=== PATIENT | male | born 1955 | race Asian ===

== ENCOUNTER → 2023-07-05 08:51 | Outpatient (REF) | payer MEDICARE, SELFPAY | LOC: RAD 08:51 | PROVIDERS: ATTENDING PHYSICIAN Family Medicine | DX: R10.84 Generalized abdominal pain (principal) | CPT/HCPCS: 76700 ==

== ENCOUNTER → 2023-07-20 12:00 | Outpatient (REF) | payer MEDICARE, SELFPAY | LOC: DHSLP 12:00 | PROVIDERS: ATTENDING PHYSICIAN Internal Medicine; FAMILY PHYSICIAN Family Medicine | DX: G47.30 Sleep apnea, unspecified (principal); R06.83 Snoring | CPT/HCPCS: 95800 ==

== ENCOUNTER → 2023-07-27 08:15 | Outpatient (REF) | payer MEDICARE, SELFPAY | LOC: HWRAD 08:15 | PROVIDERS: ATTENDING PHYSICIAN Family Medicine | DX: R10.84 Generalized abdominal pain (principal); R74.8 Abnormal levels of other serum enzymes | CPT/HCPCS: 74177; Q9967 ==

== ENCOUNTER → 2024-01-06 09:15 | Outpatient (REF) | payer MEDICARE, SELFPAY | LOC: DHSLP 09:15 | PROVIDERS: ATTENDING PHYSICIAN Internal Medicine; FAMILY PHYSICIAN Family Medicine | DX: G47.30 Sleep apnea, unspecified (principal); R06.83 Snoring | CPT/HCPCS: 95810 ==

== ENCOUNTER 2024-05-14 16:14 | Emergency (ER) | payer MEDICARE, SELFPAY ==
[2024-05-14 16:15] VITALS: BP 170/83
[2024-05-14 16:50] LABS: % Basophils 0.4 % (0-2); % Eosinophils 2.7 % (0-6); % Immature Granulocytes 0.3 % (0-0.5); % Lymphocytes 45.8 % (20.5-51.1); % Monocytes 6.1 % (1.7-9.3); % Neutrophils 44.7 % (42.2-75.2); Absolute Eosinophils 0.2 10^3/uL (0-0.7); Absolute Lymphocytes 3.6 10^3/uL (1.2-3.4); Absolute Monocytes 0.5 10^3/uL (0.1-0.6); Absolute Neutrophils 3.5 10^3/uL (1.4-6.5); Hematocrit 36.2 % (39.0-52.0); Hemoglobin 13.1 g/dL (13.0-18.0); Mean Corp Hgb Conc. 36.2 g/dL (33.0-37.0); Mean Corpuscular Hgb 30.7 pg (27.0-31.0); Mean Corpuscular Volume 84.8 fL (80.0-94.0); Mean Platelet Volume 9.2 fL (7.4-10.4); Nucleated Red Blood Cells % 0 % (-); Platelet Count 228 10^3/uL (130-400); Red Blood Cell Count 4.27 10^6/uL (4.70-6.10); White Blood Cell Count 7.8 10^3/uL (4.8-10.8)
[2024-05-14 17:07] LABS: ALT (SGPT) 24 U/L (0-50); AST (SGOT) 31 U/L (17-59); Albumin 3.9 g/dl (3.5-5.0); Alkaline Phosphatase 105 U/L (38-126); Blood Urea Nitrogen 24 mg/dl (9-20); Calcium 9.6 mg/dl (8.4-10.2); Carbon Dioxide 26 mmol/L (22-30); Chloride 101 mmol/L (98-107); Glucose 145 mg/dl (70-99); Potassium 3.5 mmol/L (3.5-5.1); Sodium 135 mmol/L (135-145); Total Bilirubin 0.6 mg/dl (0.2-1.3); Total Protein 6.4 g/dl (6.3-8.2); eGFR > 60.00
[2024-05-14 17:15] LABS: Troponin I < 0.012 ng/ml
--- NOTE | 2024-05-14 17:34 | ED.GENMED ---
Addendum entered and electronically signed by Basim Donahue DO 05/14/24 19:51:
Stress echo from 2022 report noted
Addendum entered and electronically signed by Basim Donahue DO 05/14/24 19:51:
Update patient appears comfortable, reviewed results with him, has seen [facility] cardiology previously had negative stress in the past year or so patient placed on the chest pain hotline for them
Original Note:
History of Present Illness
General
Chief Complaint: Chest Pain
Source: patient
Exam Limitations: none
Time Seen by Provider: 05/14/24 17:07
Nursing documentation reviewed up to this point in time: agreed with
History of Present Illness
History of Present Illness:
68-year male hypertension reflux BPH no history of CAD presents with pain in his left chest went to his shoulder last evening, no nausea vomiting diaphoresis, had a similar event a week ago but did not go to his shoulder somewhat reminiscent to his
reflux but not exactly, no fevers no hemoptysis no leg edema
Past History
Past History
ED Past Medical History: GERD, HTN and Other (BPH, M�ni�re's disease)
ED Past Surgical History: Orthopedic
Social History
Tobacco: Non-smoker
Alcohol: Occasional
Drug: None
Personal:
Living: with family
Employment: Employed
Review of Systems
Review of Systems
All Other Systems: ROS reviewed and negative except as documented in HPI and ROS
Respiratory: Denies cough or trouble breathing
Cardiac: Reports chest pain
ABD/GI: Reports no symptoms
: Reports no symptoms
Musculoskeletal: Reports joint pain
Skin: Reports no symptoms
Neurological: Reports no symptoms
Endocrine: Reports no symptoms
Phy Exam
Physical Exam
Physical Exam:
Physical Exam
General: no apparent distress, not acutely ill
Neck: No jaundice
Heart: s1/s2 regular rate and rhythm, no murmur. equal radial pulses.
Lungs: no acute respiratory distress. clear bilaterally
Abdomen: No tender
Neuro: alert and oriented. no focal neurological deficits
Skin: no rash
Psychiatric: well kept. interactive and cooperative
Extremities: no edema. no calf tenderness.
Scores
Heart Score for Chest Pain Patients
STEMI patient?: No
History: Slightly or Non-Suspicious
ECG: Normal
Age: >/= 65 years
Risk Factors: 1 or 2 Risk Factors
Troponin: </= Normal Limit
Heart Score for Chest Pain Patients: 3
Heart Score Risk: 2.5% MACE over next 6 weeks
Course
Orders/Labs/Results
Orders:
Orders
05/14/24 16:17
Electrocardiogram (*1) Urgent
Reason for Study: Chest Pain
05/14/24 16:18
EKG- Treatment ONCE
05/14/24 16:39
Complete Blood Count/With Diff Urgent
Comprehensive Metabolic Panel Urgent
Lipase Urgent
Comment: ADDON
Troponin I Urgent
05/14/24 17:07
CR Chest - 2 Views Urgent
Comment:
Reason For Exam: cp
05/14/24 17:30
Ketorolac [Toradol] 30 mg IV NOW STA
05/14/24 17:33
Add On- LAB Urgent
Tests Added?: lipase
05/14/24 17:58
D-Dimer Urgent
05/14/24 18:22
Troponin I Urgent
Abnormal Lab Results
05/14/24
16:39
RBC 4.27 L 10^6/uL
(4.70-6.10)
Hct 36.2 L %
(39.0-52.0)
Absolute Lymphs (auto) 3.6 H 10^3/uL
(1.2-3.4)
BUN 24 H mg/dl
(9-20)
Glucose 145 H mg/dl
(70-99)
05/14/24 16:39
05/14/24 16:39
Vital Signs
Initial and Last Documented VS:
Initial Vital Signs
Temp Pulse Resp BP Pulse Ox
98.2 F 76 16 170/83 99
05/14/24 16:15 05/14/24 16:15 05/14/24 16:15 05/14/24 16:15 05/14/24 16:15
Last Documented Vital Signs
Temp Pulse Resp BP Pulse Ox
98.2 F 76 15 129/67 98
05/14/24 16:15 05/14/24 18:15 05/14/24 16:45 05/14/24 18:03 05/14/24 18:15
*Radiology
Radiology exam reviewed: preliminary read by ED provider
*Pulse Oximetry
Patient hypoxic: no
*EKG
Interpreted by ED Provider?: Yes
Interpretation: normal
Comparison EKG: no comparison EKG present
Heart Rate: 78
Rate: normal
Rhythm: sinus
QRS Pattern: normal QRS
Ischemia: no ischemia
*Level Glass Forming Machine Operator Interpretation
Rate: normal
Interpretation: normal
Heart Rate: 78
Rhythm: sinus
*Critical Care Note
Total Time (30-74mins, 75-104mins- exclusive of procedures): Not Applicable
Update Note
Update Note:
7:30 PM update 2 undetectable troponins low D-dimer chest x-ray without pneumothorax nonischemic appearing EKG
ED Attending Note
-
Portions of this chart may have been created with voice recognition software.� Occasional wrong word or��sound alike� substitutions may have occurred due to the inherent limitations of voice recognition software.
Discharge Plan
Departure
Patient Disposition: Home (Routine Discharge)
Date of Disposition: 05/14/24
Time of Disposition: 19:27
Patient with high blood pressure during this ER visit?: No
Condition: Good
Discharge Problem:
Chest pain
Instructions: Chest Pain CBC Follow Up, Acid Reflux and GERD in Adults (DC)
Prescriptions:
No Action
famotidine 40 mg Tablet
40 mg PO HSPRN PRN (Reason: gerd)
cyanocobalamin (vitamin B-12) 1,000 mcg Tablet
1,000 mcg PO DAILY
chlorthalidone 25 mg Tablet
12.5 mg PO DAILY
tamsulosin 0.4 mg Capsule
0.4 mg PO QPM
telmisartan 40 mg Tablet
40 mg PO DAILY
omeprazole 20 mg Capsule,Delayed Release(Dr/Ec)
20 mg PO DAILY
vitamin B complex Tablet
1 tab PO DAILY
magnesium oxide 250 mg magnesium Tablet
250 mg PO DAILY
Referrals:
Michael Tarango DO [Family Provider] -
Ga Chirinos MD [Active] - Next open appointment
Activity Restrictions/Additional Instructions:
Continue your antacids
Start taking aspirin 81 mg a day
Follow-up with your family doctor and cardiology
Interventions
Interventions:
*Risk Screen - Suicide Last Done: 05/14/24 16:15
*General Assessment Last Done: 05/14/24 16:15
*Neglect/Abuse Screening Last Done: 05/14/24 16:15
*ED- Fall Risk Assessment Last Done: 05/14/24 16:40
*ED COVID-19 Vaccine History Last Done: 05/14/24 16:15
ED- Cardiac Assessment Last Done: 05/14/24 16:40
Discharge Date and Time
Print Language: SLOVENIAN
[2024-05-14] MEDS: TORADOL 30 MG IV (17:58)
[2024-05-14 18:03] VITALS: BP 129/67
[2024-05-14 18:03] LABS: Lipase 205 U/L (23-300)
[2024-05-14 18:30] LABS: D-Dimer < 0.27 ug/mlFEU (0.00-0.50)
[2024-05-14 19:00] LABS: Troponin I < 0.012 ng/ml
[2024-05-14 19:49] VITALS: BP 128/71
== END 2024-05-14 19:57 | disposition home or self-care (01) ==
LOC: EMR 16:14
PROVIDERS: Emergency Medicine; EMERGENCY PHYSICIAN Emergency Medicine; FAMILY PHYSICIAN Family Medicine
DX: R07.9 Chest pain, unspecified (principal); I10 Essential (primary) hypertension; K21.9 Gastro-esophageal reflux disease without esophagitis
CPT/HCPCS: 96374; 99285; 71046; 80053; 83690; 84484; 85025; 85379; 93005

== ENCOUNTER → 2024-05-22 10:55 | Outpatient (REF) | payer MEDICARE, SELFPAY | LOC: RAD 10:55 | PROVIDERS: ATTENDING PHYSICIAN Family Medicine | DX: R31.29 Other microscopic hematuria (principal); R10.31 Right lower quadrant pain | CPT/HCPCS: 74177; Q9967 ==

== ENCOUNTER 2024-10-27 15:01 | Outpatient (RCR) | payer MEDICARE, SELFPAY | END 2024-10-27 23:59 | disposition home or self-care (01) | LOC: RPT 15:01 | PROVIDERS: ATTENDING PHYSICIAN Pain Medicine Interventional Pain Medicine; FAMILY PHYSICIAN Family Medicine | DX: M54.16 Radiculopathy, lumbar region (principal); Z73.6 Limitation of activities due to disability; M47.26 Other spondylosis with radiculopathy, lumbar region; M51.16 Intervertebral disc disorders with radiculopathy, lumbar region | CPT/HCPCS: 97110; 97112; 97140; 97161; 97530 ==

== ENCOUNTER 2024-11-07 13:07 | Outpatient (RCR) | payer MEDICARE, SELFPAY | END 2024-11-07 23:59 | disposition home or self-care (01) | LOC: RPT 13:07 | PROVIDERS: ATTENDING PHYSICIAN Pain Medicine Interventional Pain Medicine; FAMILY PHYSICIAN Family Medicine | DX: M54.16 Radiculopathy, lumbar region (principal); Z73.6 Limitation of activities due to disability; M47.26 Other spondylosis with radiculopathy, lumbar region; M51.16 Intervertebral disc disorders with radiculopathy, lumbar region | CPT/HCPCS: 97110; 97112; 97140 ==

== ENCOUNTER → 2024-12-29 09:22 | Outpatient (REF) | payer MEDICARE, SELFPAY | LOC: MRI 3T 09:22 | PROVIDERS: ATTENDING PHYSICIAN Orthopaedic Surgery; FAMILY PHYSICIAN Family Medicine | DX: M25.561 Pain in right knee (principal) | CPT/HCPCS: 73721 ==